=== PATIENT | male | born 1980 | race Caucasian/White ===

== ENCOUNTER → 2016-11-22 | Outpatient (CLI) | payer OTHER ==
[~2016-11-22] MED LIST: OPTIRAY 320 IV PRN; RANI150T3 PO
--- NOTE | 2016-11-22 08:04 | DIAGNOSTIC IMAGING REPORT ---
CT OF THE ABDOMEN AND PELVIS WITH CONTRAST CLINICAL HISTORY: Abdominal pain. Evaluate for acute diverticulitis. COMPARISON STUDY: CT of the abdomen and pelvis September 02, 2014. TECHNIQUE: Following IV administration of 120 mL of Optiray-320, axial images of the abdomen and pelvis were obtained from the lung bases to the proximal femurs. Images were reviewed in the axial, sagittal, and coronal planes. IV contrast was administered without complication. A dose lowering technique was utilized adhering to the principles of ALARA. Oral contrast was administered. FINDINGS: The lung bases are clear. No pneumatosis, free air or portal venous gas is present. The liver, spleen, adrenal glands, kidneys and pancreas are normal. There is no biliary or pancreatic ductal dilatation. No peripancreatic or pericholecystic infiltration is present. Both nephrograms are symmetric and there is no hydronephrosis. No ureteral calculi are present. The appendix is normal. There is no evidence for a bowel obstruction. Note is made of moderate sigmoid diverticulosis. There is mild infiltration adjacent to the mid sigmoid colon shown best on axial image 367 of 501. There is no free air or abscess. 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 No lymphadenopathy is present. Skeletal structures are present. IMPRESSION: 1. Mild acute sigmoid diverticulitis. No free air or abscess. 2. 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 Electronically signed by: Buck Salazar M.D. 11/22/2016 8:03 AM Dictated Date/Time: 11/22/2016 7:33 AM
== END | disposition home or self-care (01) ==
LOC: C.CTS 07:16
PROVIDERS: ATTEND Internal Medicine
DX: K57.92 Diverticulitis of intestine, part unspecified, without perforation or abscess without bleeding (principal)

== ENCOUNTER 2022-08-27 18:29 | Inpatient (IN) ==
[2022-08-27] MEDS ORDERED: SODIUM CHLORIDE 0.9% 1000ML 1,000 ML IV ONE ×2 (18:51→20:55)
--- NOTE | 2022-08-27 19:12 | Emergency Department Note ---
History of Present Illness General Chief complaint: Hyperglycemia Stated complaint: SUGAR OVER 600 Time Seen by Provider: 08/27/22 18:51 History of Present Illness 42-year-old male presents emergency department with a 1 month history of polyphasia polydipsia weight loss, reportedly checked machine and took his blood sugar was greater than 600. Patient denies any nausea vomiting diarrhea. Patient has a family history with a grandparent who has diabetes. Patient denies any alteration mental status denies generalized weakness denies back pain denies chest pain shortness of breath. Patient states he was concerned due to approximately 50 pound weight loss in 1-1/2 months. Patient states that he is hungry all of the time and is thirsty all of the time. He has no other complaints currently Home Medications Medication Instructions Recorded Confirmed Type omeprazole 20 mg tablet,delayed 20 mg PO DAILY 08/27/22 08/27/22 History release sertraline 150 mg capsule 150 mg PO DAILY 08/27/22 08/27/22 History Allergies Allergy/AdvReac Type Severity Reaction Status Date / Time bee venom protein (honey bee) Allergy Severe ANAPHYLAXIS Unverified 08/27/22 20:45 hornet venom Allergy Severe ANAPHYLAXIS Unverified 08/27/22 20:45 Past Med/Surg History Social History Smoking Status: Never smoker Feels Safe at Home: Yes Immunizations: Past medical history denies Review of Systems A total of 10 systems reviewed and were otherwise negative Constitutional: no fever Cardiovascular: no chest pain Gastrointestinal: no abdominal pain Neurologic: + generalized weakness Endocrine: + polydipsia, + polyphagia and + polyuria Physical Exam Vital Signs Vital Signs - 24 hr 08/27/22 18:36 08/27/22 18:49 08/27/22 19:03 Temperature 36.8 C Temperature Source Temporal Artery Scan Pulse Rate 83 88 Pulse Rate [Left Apical] 80 Respiratory Rate 20 16 15 Respiratory Effort / Characteristics Non-Labored Respiratory Depth Normal Blood Pressure 117/77 110/82 Blood Pressure [Right Arm] 125/89 Blood Pressure Mean 90 91 Blood Pressure Mean [Right Arm] 101 Pulse Oximetry 97 97 98 Oxygen Delivery Method Room Air Room Air Room Air Sepsis Recent Fever Within 48 Hours No Sepsis New/Unexplained Change in Mental Status Yes Sepsis Action Taken by Nursing No Action Required 08/27/22 19:03 08/27/22 19:30 08/27/22 20:00 Temperature Temperature Source Pulse Rate 87 75 77 Pulse Rate [Left Apical] Respiratory Rate 22 18 Respiratory Effort / Characteristics Respiratory Depth Blood Pressure 125/87 119/84 Blood Pressure [Right Arm] Blood Pressure Mean 99 95 Blood Pressure Mean [Right Arm] Pulse Oximetry 95 96 Oxygen Delivery Method Room Air Room Air Sepsis Recent Fever Within 48 Hours Sepsis New/Unexplained Change in Mental Status Sepsis Action Taken by Nursing GENERAL: Patient is awake alert in no acute distress patient is resting comfortably and showing no signs of anxiety EYES: The conjunctivae are clear. The pupils are round and reactive. EARS, NOSE, MOUTH AND THROAT: The nose is without any evidence of any deformity. Mucous membranes are moist. Tongue is midline. NECK: The neck is nontender and supple. RESPIRATORY: Normal respiratory effort is noted there is no evidence of wheezing rhonchi or rales CARDIOVASCULAR: Regular rate and rhythm noted there no murmurs rubs or gallops normal S1 normal S2. GASTROINTESTINAL: The abdomen is soft. Abdomen is nontender. BACK: No midline tenderness or or step-off noted range of motion in flexion ex tension as well as rotation no signs of muscle spasm noted MUSCULOSKELETAL/EXTREMITIES: There is no evidence of gross deformity full range of motion is noted in the hips and shoulders. SKIN: There is no obvious evidence of any rash. There are no petechiae, pallor or cyanosis noted. NEUROLOGIC: Patient is awake alert and oriented x3 strength is symmetric Course Reevaluation(s) Reevaluation #1: Patient was started on IV fluids. Patient had a decrease in his blood sugar after IV fluids alone. Time: 20:44 Consultations Consultation #1: Case was discussed with the [facility]ist for admission for hyperglycemia Time: 20:45 Administered Medications Discontinued Medications Sodium Chloride (Nss 1000ml) 1,000 mls @ 999 mls/hr IV .Q1H1M ONE Stop: 08/27/22 19:51 Last Infusion: 08/27/22 20:08 Dose: 0 mls/hr Documented By: Admin: 08/27/22 19:01 Dose: 999 mls/hr Documented By: MEEK Medical Decision Making Medical Records Attestation: I reviewed the patient's medical records. Home Medications Current Medication List: was personally reviewed by me Laboratory Data Attestation: I reviewed the patient's lab results. Patient has an elevated blood sugar. Patient has a normal VBG; patient's labs do not reveal diabetic ketoacidosis as a diagnosis at this time 08/27/22 18:46 08/27/22 18:46 Lab Results 08/27/22 08/27/22 08/27/22 Range/Units 18:35 18:46 18:46 WBC 9.99 (4.8-10.8) K/ul RBC 5.69 (4.70-6.10) M/uL Hgb 16.5 (14.0-18.0) g/dl Hct 44.8 (42.0-52.0) % MCV 78.7 L (80.0-100.0) fL MCH 29.0 (25.0-34.0) pg MCHC 36.8 H (32.0-36.0) g/dL RDW Std Deviation 34.2 L (36.4-46.3) fL RDW Coeff of Yvon 12.2 (11.5-14.5) % Plt Count 282 (130-400) K/uL MPV 11.6 (9.4-12.4) fL Immature Gran % (Auto) 0.7 % Neut % (Auto) 64.4 % Lymph % (Auto) 25.3 % [place] % (Auto) 7.7 % Eos % (Auto) 1.5 % Baso % (Auto) 0.4 % Neut # (Auto) 6.43 (1.40-6.50) K/uL Lymph # (Auto) 2.53 (1.2-3.4) K/uL [place] # (Auto) 0.77 H (0.11-0.59) K/uL Eos # (Auto) 0.15 (0-0.50) K/uL Baso # (Auto) 0.04 (0-0.2) K/uL Immature Gran # (Auto) 0.07 (0.01-0.20) K/uL VBG pH (7.36-7.41) VBG pCO2 (38-50) mmHg VBG pO2 mmHg VBG HCO3 mmol/L VBG O2 Saturation % VBG Base Excess mEq/L Sodium 130 L (136-145) mmol/L Potassium 3.6 (3.5-5.1) mmol/L Chloride 88 L (98-107) mmol/L Carbon Dioxide 27 (21-32) mmol/L Anion Gap 15 H (3-11) BUN 7 (6-23) mg/dl Creatinine 1.04 (0.6-1.4) mg/dl Est Cr Clr Drug Dosing 96.5 ml/min Est GFR ( Amer) 100.7 ml/min Est GFR (Non-Af Amer) 86.9 ml/min BUN/Creatinine Ratio 6.7 L (10-20) Glucose 443 H* (70-99(Fasting)) mg/dl POC Glucose 452 H* (70-99) mg/dl Estimat Average Glucose mg/dl Hemoglobin A1c (4.5-5.6) % Calcium 9.8 (8.6-10.3) mg/dl Phosphorus 3.0 (2.5-4.9) mg/dl Magnesium 1.9 (1.7-2.4) mg/dl Total Bilirubin 0.7 (0.2-1.0) mg/dl AST 20 (13-39) U/L ALT 36 (7-52) U/L Alkaline Phosphatase 160 H (34-104) U/L Total Protein 7.6 (6.0-8.3) gm/dl Albumin 4.8 (3.4-5.0) gm/dl Globulin 2.8 (2.5-4.0) gm/dl Albumin/Globulin Ratio 1.7 (0.9-2) Urine Color Urine Appearance (Clear) Urine pH (4.5-7.5) Ur Specific [place] (1.000-1.030) Urine Protein (Negative) Urine Glucose (UA) (Negative) Urine Ketones (Negative) Urine Blood (Negative) Urine Nitrite (Negative) Urine Bilirubin (Negative) Urine Urobilinogen (Negative) Ur Leukocyte Esterase (Negative) 08/27/22 08/27/22 08/27/22 Range/Units 18:46 18:47 18:59 WBC (4.8-10.8) K/ul RBC (4.70-6.10) M/uL Hgb (14.0-18.0) g/dl Hct (42.0-52.0) % MCV (80.0-100.0) fL MCH (25.0-34.0) pg MCHC (32.0-36.0) g/dL RDW Std Deviation (36.4-46.3) fL RDW Coeff of Yvon (11.5-14.5) % Plt Count (130-400) K/uL MPV (9.4-12.4) fL Immature Gran % (Auto) % Neut % (Auto) % Lymph % (Auto) % [place] % (Auto) % Eos % (Auto) % Baso % (Auto) % Neut # (Auto) (1.40-6.50) K/uL Lymph # (Auto) (1.2-3.4) K/uL [place] # (Auto) (0.11-0.59) K/uL Eos # (Auto) (0-0.50) K/uL Baso # (Auto) (0-0.2) K/uL Immature Gran # (Auto) (0.01-0.20) K/uL VBG pH 7.46 H (7.36-7.41) VBG pCO2 41 (38-50) mmHg VBG pO2 55 mmHg VBG HCO3 29 mmol/L VBG O2 Saturation 90.6 % VBG Base Excess 4.9 mEq/L Sodium (136-145) mmol/L Potassium (3.5-5.1) mmol/L Chloride (98-107) mmol/L Carbon Dioxide (21-32) mmol/L Anion Gap (3-11) BUN (6-23) mg/dl Creatinine (0.6-1.4) mg/dl Est Cr Clr Drug Dosing ml/min Est GFR ( Amer) ml/min Est GFR (Non-Af Amer) ml/min BUN/Creatinine Ratio (10-20) Glucose (70-99(Fasting)) mg/dl POC Glucose (70-99) mg/dl Estimat Average Glucose 421 mg/dl Hemoglobin A1c 16.3 H (4.5-5.6) % Calcium (8.6-10.3) mg/dl Phosphorus (2.5-4.9) mg/dl Magnesium (1.7-2.4) mg/dl Total Bilirubin (0.2-1.0) mg/dl AST (13-39) U/L ALT (7-52) U/L Alkaline Phosphatase (34-104) U/L Total Protein (6.0-8.3) gm/dl Albumin (3.4-5.0) gm/dl Globulin (2.5-4.0) gm/dl Albumin/Globulin Ratio (0.9-2) Urine Color Yellow Urine Appearance Clear (Clear) Urine pH 7.0 (4.5-7.5) Ur Specific [place] 1.044 H (1.000-1.030) Urine Protein Negative (Negative) Urine Glucose (UA) 3+ H (Negative) Urine Ketones 2+ H (Negative) Urine Blood Negative (Negative) Urine Nitrite Negative (Negative) Urine Bilirubin Negative (Negative) Urine Urobilinogen Negative (Negative) Ur Leukocyte Esterase Negative (Negative) 08/27/22 Range/Units 19:59 WBC (4.8-10.8) K/ul RBC (4.70-6.10) M/uL Hgb (14.0-18.0) g/dl Hct (42.0-52.0) % MCV (80.0-100.0) fL MCH (25.0-34.0) pg MCHC (32.0-36.0) g/dL RDW Std Deviation (36.4-46.3) fL RDW Coeff of Yvon (11.5-14.5) % Plt Count (130-400) K/uL MPV (9.4-12.4) fL Immature Gran % (Auto) % Neut % (Auto) % Lymph % (Auto) % [place] % (Auto) % Eos % (Auto) % Baso % (Auto) % Neut # (Auto) (1.40-6.50) K/uL Lymph # (Auto) (1.2-3.4) K/uL [place] # (Auto) (0.11-0.59) K/uL Eos # (Auto) (0-0.50) K/uL Baso # (Auto) (0-0.2) K/uL Immature Gran # (Auto) (0.01-0.20) K/uL VBG pH (7.36-7.41) VBG pCO2 (38-50) mmHg VBG pO2 mmHg VBG HCO3 mmol/L VBG O2 Saturation % VBG Base Excess mEq/L Sodium (136-145) mmol/L Potassium (3.5-5.1) mmol/L Chloride (98-107) mmol/L Carbon Dioxide (21-32) mmol/L Anion Gap (3-11) BUN (6-23) mg/dl Creatinine (0.6-1.4) mg/dl Est Cr Clr Drug Dosing ml/min Est GFR ( Amer) ml/min Est GFR (Non-Af Amer) ml/min BUN/Creatinine Ratio (10-20) Glucose (70-99(Fasting)) mg/dl POC Glucose 343 H* (70-99) mg/dl Estimat Average Glucose mg/dl Hemoglobin A1c (4.5-5.6) % Calcium (8.6-10.3) mg/dl Phosphorus (2.5-4.9) mg/dl Magnesium (1.7-2.4) mg/dl Total Bilirubin (0.2-1.0) mg/dl AST (13-39) U/L ALT (7-52) U/L Alkaline Phosphatase (34-104) U/L Total Protein (6.0-8.3) gm/dl Albumin (3.4-5.0) gm/dl Globulin (2.5-4.0) gm/dl Albumin/Globulin Ratio (0.9-2) Urine Color Urine Appearance (Clear) Urine pH (4.5-7.5) Ur Specific [place] (1.000-1.030) Urine Protein (Negative) Urine Glucose (UA) (Negative) Urine Ketones (Negative) Urine Blood (Negative) Urine Nitrite (Negative) Urine Bilirubin (Negative) Urine Urobilinogen (Negative) Ur Leukocyte Esterase (Negative) MDM Narrative Medical decision making differential diagnosis includes new onset diabetes, diabetic ketoacidosis, HHNK, electrolyte abnormality, dehydration Plan is to check labs, give IV fluids Patient was started on IV fluids, patient has an elevated blood sugar, a normal pH and not significant anion gap patient is not exhibiting any clinical signs at this time of diabetic ketoacidosis Patient will be admitted for IV hydration and diabetes Impression & Plan Diabetes mellitus, new onset Discharge Plan Visit Data Chief Complaint: Hyperglycemia Stated Complaint: SUGAR OVER 600 ED Provider: Brant Damian Discharge Problem: Diabetes mellitus, new onset Patient Disposition: Admitted As Inpatient Forms Stand Alone Forms: My [facility] Referrals Referrals: Clemente Franz MD [Outside Practitioners] -
[2022-08-27 19:16] LABS: Base Excess VBG 4.9 mEq/L; HCO3 VBG 29 mmol/L; Oxygen Saturation VBG 90.6 %; PCO2 VBG 41 mmHg (38-50); PO2 VBG 55 mmHg; pH VBG 7.46 (7.36-7.41)
[2022-08-27 19:17] LABS: Basophils # (auto) 0.04 K/uL (0-0.2); Basophils % (auto) 0.4 %; Eosinophils # (auto) 0.15 K/uL (0-0.50); Eosinophils % (auto) 1.5 %; Hematocrit (blood only) 44.8 % (42.0-52.0); Hemoglobin 16.5 g/dl (14.0-18.0); Immature Granulocytes # (auto) 0.07 K/uL (0.01-0.20); Immature Granulocytes % (auto) 0.7 %; Lymphocytes # (auto) 2.53 K/uL (1.2-3.4); Lymphocytes % (auto) 25.3 %; Mean Corpuscular Hgb Conc 36.8 g/dL (32.0-36.0); Mean Corpuscular Volume 78.7 fL (80.0-100.0); Mean Platelet Volume 11.6 fL (9.4-12.4); Monocytes # (auto) 0.77 K/uL (0.11-0.59); Monocytes % (auto) 7.7 %; Neutrophils # (auto) 6.43 K/uL (1.40-6.50); Neutrophils % (auto) 64.4 %; Platelet Count 282 K/uL (130-400); RDW Coefficient of Variation 12.2 % (11.5-14.5); RDW Standard Deviation 34.2 fL (36.4-46.3); Red Blood Count 5.69 M/uL (4.70-6.10); White Blood Count 9.99 K/ul (4.8-10.8)
[2022-08-27 19:19] LABS: Appearance Urine Clear (Clear); Bilirubin Urine Negative (Negative); Blood Urine Negative (Negative); Color Urine Yellow; Glucose Urine UA 3+ (Negative); Ketones Urine 2+ (Negative); Leukocyte Esterase Urine Negative (Negative); Nitrite Urine Negative (Negative); Protein Urine Negative (Negative); Specific Gravity Urine 1.044 (1.000-1.030); Urobilinogen Urine Negative (Negative)
[2022-08-27 19:33] LABS: Estimated Average Glucose 421 mg/dl; Hemoglobin A1C 16.3 % (4.5-5.6)
[2022-08-27 20:11] LABS: Albumin Level 4.8 gm/dl (3.4-5.0); Bilirubin,Total 0.7 mg/dl (0.2-1.0); Calcium 9.8 mg/dl (8.6-10.3); Magnesium 1.9 mg/dl (1.7-2.4); Potassium 3.6 mmol/L (3.5-5.1)
[2022-08-27 20:22] LABS: Albumin Globulin Ratio 1.7 (0.9-2); BUN Creatinine Ratio 6.7 (10-20); Creatinine Clr Calc Pharmacy 96.5 ml/min; Est GFR (African American) 100.7 ml/min; Est GFR (Non-African American) 86.9 ml/min; Globulin 2.8 gm/dl (2.5-4.0); Total Protein 7.6 gm/dl (6.0-8.3)
[2022-08-27] MEDS ORDERED: GLUCOSE 40% GEL 15 GM TUBE PO PRN (21:18)
[2022-08-27] MEDS ORDERED: LANTUS PER UNIT CHARGE SQ STA (21:18)
[2022-08-27] MEDS ORDERED: GLUCOSE 10 TAB/TUBE PO PRN (21:18)
[2022-08-27] MEDS ORDERED: DEXTROSE 50% 50 ML SYRINGE IV PRN (21:18)
[2022-08-27] MEDS ORDERED: GLUCAGON FOR INJ 1 MG VIAL SQ PRN (21:18)
[2022-08-27] MEDS ORDERED: CARBOHYDRATES FOR HYPOGLYCEMIA PO PRN (21:18)
[2022-08-27] MEDS ORDERED: INSULIN ASPART PER UNIT CHARGE SC SCH (21:20)
[2022-08-27] MEDS ORDERED: LACTATED RINGER'S 1,000 ML IV ONE (21:20)
[2022-08-27] MEDS ORDERED: POTASSIUM CHLORIDE CRTAB 20 MEQ TABCR PO STA (21:20)
--- NOTE | 2022-08-27 22:17 | History & Physical Report ---
Date of Service August 27, 2022 Assessment & Plan (1) DKA (diabetic ketoacidosis): Plan: Mild DKA New diagnosis DM with hemoglobin A1c of 16.3, possible VANCE Patient prediabetic on the basis of outpatient hemoglobin A1c of 5.9 last January 2019 on review of outpatient records. Possible VANCE Pseudohyponatremia secondary to hyperglycemia GERD, stable hyperlipidemia, not on maintenance medications mood disorder, stable past tobacco abuse GMF IVF Basal bolus insulin, ISS BG goal 1 10-1 40, carb count coverage, DM education May benefit from pharmacy glycemic consultation. Check glutamic acid acid decarboxylase antibody and zinc transporter 8 antibody levels. Outpatient Endocrinology consultation given possible VANCE. DVT prophylaxis per Lovenox subcu Full code Patient requesting updates providers. Ms. Vilma Macario, contact #[phone]. Text document was generated using Chalkboard voice recognition software. It may contain grammatical or spelling errors. Kindly contact undersigned for clarification of any documentation item in qu estion. History of Present Illness Chief Complaint: High blood sugar Primary Care Provider: ABILIO Ly (Patient has not met her.) Previous PCP : Dr. Franz from [facility] History obtained from patient, family, and records. Medical history significant for GERD, diverticulitis, hyperlipidemia, mood disorder, past tobacco abuse. Last confinement July 2014 enterocolonic fistula/abscess status post antibiotic Rx. Few months history of polydipsia, polyuria, and involuntary weight loss. Fever, no chills, no chest pain, no SOB, no abdominal pain. Patient checked patient's blood sugar at home. Blood sugar registering as high. Patient brought to ER for evaluation. 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 Allergies Allergy/AdvReac Type Severity Reaction Status Date / Time bee venom protein (honey bee) Allergy Severe ANAPHYLAXIS Unverified 08/27/22 20:45 hornet venom Allergy Severe ANAPHYLAXIS Unverified 08/27/22 20:45 morphine AdvReac Vomiting Verified 08/27/22 20:46 trazodone AdvReac hyperactivi Verified 08/27/22 20:46 ty Home Medications Medication Instructions Recorded Confirmed Type omeprazole 20 mg tablet,delayed 20 mg PO DAILY 08/27/22 08/27/22 History release sertraline 150 mg capsule 150 mg PO DAILY 08/27/22 08/27/22 History Past Med/Surg History Social History Smoking Status: Former smoker Cigarettes Per Day: 10; Second Hand Exposure: No; Do You Dip or Chew Tobacco: Yes (Not everyday.); Tobacco Cessation Education Requested by Patient: No Hx Alcohol Use: No Hx Substance Use: No Preferred Language: Wolof Communication Ability: Effective Manager Green Required: No Beliefs That Will Affect Care: None Current Living Situation: Alone Other Information That Helps Us Care for You: No Feels Safe at Home: Yes Safety Concerns: Feels Safe At This Time Assistive Devices: Glasses Review of Systems Review of Systems: As per HPI, all other systems reviewed and negative Physical Exam Physical Exam: GENERAL: Comfortable, pleasant, no respiratory distress SKIN: Normal color, warm HEENT: Gratis palpebral conjunctivae, no ptosis, dry buccal mucosa NECK : Supple, no tenderness CHEST : CTA, no tenderness HEART : RRR, no obvious murmurs ABDOMEN: Some distention, nontender EXTREMITIES : No LE swelling/tenderness, no other conspicuous deformities noted NEUROLOGIC : Coherent, no facial asymmetry, no other gross focality Results & Data Results & Data Vital Signs (Past 12 Hours) Vital Signs Temp Pulse Pulse Resp BP BP Pulse Ox 08/27/22 22:00 74 19 137/90 97 08/27/22 21:30 69 16 123/89 96 08/27/22 21:00 77 19 127/86 94 08/27/22 20:50 76 15 97 08/27/22 20:40 70 18 95 08/27/22 20:30 71 19 97 08/27/22 20:30 119/82 08/27/22 20:20 72 15 96 08/27/22 20:00 77 18 119/84 96 08/27/22 19:30 75 22 125/87 95 08/27/22 19:03 87 08/27/22 19:03 88 15 110/82 98 08/27/22 18:49 80 16 125/89 97 08/27/22 18:36 36.8 C 83 20 117/77 97 O2 Del Method 08/27/22 22:00 Room Air 08/27/22 21:30 Room Air 08/27/22 21:00 Room Air 08/27/22 20:50 08/27/22 20:40 08/27/22 20:30 08/27/22 20:30 08/27/22 20:20 08/27/22 20:00 Room Air 08/27/22 19:30 Room Air 08/27/22 19:03 08/27/22 19:03 Room Air 08/27/22 18:49 Room Air 08/27/22 18:36 Room Air Laboratory Results Laboratory Results WBC 9.99 K/ul (4.8-10.8) 08/27/22 18:46 RBC 5.69 M/uL (4.70-6.10) 08/27/22 18:46 Hgb 16.5 g/dl (14.0-18.0) 08/27/22 18:46 Hct 44.8 % (42.0-52.0) 08/27/22 18:46 MCV 78.7 fL (80.0-100.0) L 08/27/22 18:46 MCH 29.0 pg (25.0-34.0) 08/27/22 18:46 MCHC 36.8 g/dL (32.0-36.0) H 08/27/22 18:46 RDW Std Deviation 34.2 fL (36.4-46.3) L 08/27/22 18:46 RDW Coeff of Yvon 12.2 % (11.5-14.5) 08/27/22 18:46 Plt Count 282 K/uL (130-400) 08/27/22 18:46 MPV 11.6 fL (9.4-12.4) 08/27/22 18:46 Immature Gran % (Auto) 0.7 % 08/27/22 18:46 Neut % (Auto) 64.4 % 08/27/22 18:46 Lymph % (Auto) 25.3 % 08/27/22 18:46 [place] % (Auto) 7.7 % 08/27/22 18:46 Eos % (Auto) 1.5 % 08/27/22 18:46 Baso % (Auto) 0.4 % 08/27/22 18:46 Neut # (Auto) 6.43 K/uL (1.40-6.50) 08/27/22 18:46 Lymph # (Auto) 2.53 K/uL (1.2-3.4) 08/27/22 18:46 [place] # (Auto) 0.77 K/uL (0.11-0.59) H 08/27/22 18:46 Eos # (Auto) 0.15 K/uL (0-0.50) 08/27/22 18:46 Baso # (Auto) 0.04 K/uL (0-0.2) 08/27/22 18:46 Immature Gran # (Auto) 0.07 K/uL (0.01-0.20) 08/27/22 18:46 VBG pH 7.46 (7.36-7.41) H 08/27/22 18:59 VBG pCO2 41 mmHg (38-50) 08/27/22 18:59 VBG pO2 55 mmHg 08/27/22 18:59 VBG HCO3 29 mmol/L 08/27/22 18:59 VBG O2 Saturation 90.6 % 08/27/22 18:59 VBG Base Excess 4.9 mEq/L 08/27/22 18:59 Sodium 130 mmol/L (136-145) L 08/27/22 18:46 Potassium 3.6 mmol/L (3.5-5.1) 08/27/22 18:46 Chloride 88 mmol/L (98-107) L 08/27/22 18:46 Carbon Dioxide 27 mmol/L (21-32) 08/27/22 18:46 Anion Gap 15 (3-11) H 08/27/22 18:46 BUN 7 mg/dl (6-23) 08/27/22 18:46 Creatinine 1.04 mg/dl (0.6-1.4) 08/27/22 18:46 Est Cr Clr Drug Dosing 96.5 ml/min 08/27/22 18:46 Est GFR ( Amer) 100.7 ml/min 08/27/22 18:46 Est GFR (Non-Af Amer) 86.9 ml/min 08/27/22 18:46 BUN/Creatinine Ratio 6.7 (10-20) L 08/27/22 18:46 Glucose 443 mg/dl (70-99(Fasting)) H* 08/27/22 18:46 POC Glucose 276 mg/dl (70-99) H 08/27/22 21:04 Estimat Average Glucose 421 mg/dl 08/27/22 18:46 Hemoglobin A1c 16.3 % (4.5-5.6) H 08/27/22 18:46 Calcium 9.8 mg/dl (8.6-10.3) 08/27/22 18:46 Phosphorus 3.0 mg/dl (2.5-4.9) 08/27/22 18:46 Magnesium 1.9 mg/dl (1.7-2.4) 08/27/22 18:46 Total Bilirubin 0.7 mg/dl (0.2-1.0) 08/27/22 18:46 AST 20 U/L (13-39) 08/27/22 18:46 ALT 36 U/L (7-52) 08/27/22 18:46 Alkaline Phosphatase 160 U/L (34-104) H 08/27/22 18:46 Total Protein 7.6 gm/dl (6.0-8.3) 08/27/22 18:46 Albumin 4.8 gm/dl (3.4-5.0) 08/27/22 18:46 Globulin 2.8 gm/dl (2.5-4.0) 08/27/22 18:46 Albumin/Globulin Ratio 1.7 (0.9-2) 08/27/22 18:46 TSH 1.890 uIu/ml (0.300-4.500) 08/27/22 18:46 Urine Color Yellow 08/27/22 18:47 Urine Appearance Clear (Clear) 08/27/22 18:47 Urine pH 7.0 (4.5-7.5) 08/27/22 18:47 Ur Specific [place] 1.044 (1.000-1.030) H 08/27/22 18:47 Urine Protein Negative (Negative) 08/27/22 18:47 Urine Glucose (UA) 3+ (Negative) H 08/27/22 18:47 Urine Ketones 2+ (Negative) H 08/27/22 18:47 Urine Blood Negative (Negative) 08/27/22 18:47 Urine Nitrite Negative (Negative) 08/27/22 18:47 Urine Bilirubin Negative (Negative) 08/27/22 18:47 Urine Urobilinogen Negative (Negative) 08/27/22 18:47 Ur Leukocyte Esterase Negative (Negative) 08/27/22 18:47 SARS-CoV-2, RNA, NAAT NEGATIVE (NEGATIVE) 08/27/22 20:35
[2022-08-27] MEDS ORDERED: PROMETHAZINE HCL 6.25 MG in SODIUM CHLORIDE 0.9% 50 ML IV PRN (23:27)
[2022-08-27] MEDS ORDERED: ACETAMINOPHEN 325 MG TAB PO PRN (23:27)
[2022-08-28 03:22] LABS: Basophils # (auto) 0.04 K/uL (0-0.2); Basophils % (auto) 0.5 %; Eosinophils # (auto) 0.21 K/uL (0-0.50); Eosinophils % (auto) 2.4 %; Hematocrit (blood only) 36.9 % (42.0-52.0); Hemoglobin 13.6 g/dl (14.0-18.0); Immature Granulocytes # (auto) 0.06 K/uL (0.01-0.20); Immature Granulocytes % (auto) 0.7 %; Lymphocytes # (auto) 2.96 K/uL (1.2-3.4); Lymphocytes % (auto) 33.6 %; Mean Corpuscular Hemoglobin 29.3 pg (25.0-34.0); Mean Corpuscular Hgb Conc 36.9 g/dL (32.0-36.0); Mean Corpuscular Volume 79.5 fL (80.0-100.0); Mean Platelet Volume 11.1 fL (9.4-12.4); Monocytes # (auto) 0.64 K/uL (0.11-0.59); Monocytes % (auto) 7.3 %; Neutrophils % (auto) 55.5 %; Platelet Count 239 K/uL (130-400); RDW Coefficient of Variation 12.1 % (11.5-14.5); RDW Standard Deviation 34.9 fL (36.4-46.3); Red Blood Count 4.64 M/uL (4.70-6.10); White Blood Count 8.81 K/ul (4.8-10.8)
[2022-08-28 03:59] LABS: BUN Creatinine Ratio 7.8 (10-20); Calcium 8.1 mg/dl (8.6-10.3); Creatinine Clr Calc Pharmacy 97.5 ml/min; Est GFR (African American) 101.9 ml/min; Est GFR (Non-African American) 87.9 ml/min; Potassium 3.6 mmol/L (3.5-5.1)
[2022-08-28] MEDS ORDERED: NSS + 20MEQ KCL 20 MEQ/1,000 ML BAG IV ONE (04:15)
[2022-08-28] MEDS: INSULIN ASPART PER UNIT CHARGE SC SCH ×4 (05:12→20:19)
[2022-08-28] MEDS ORDERED: LANTUS PER UNIT CHARGE SQ STA (05:22)
--- NOTE | 2022-08-28 07:04 | XRay Report ---
XR chest 1V portable CLINICAL HISTORY: hyponatremia COMPARISON STUDY: Chest radiograph September 02, 2014. FINDINGS: Lung volumes are normal. There is no consolidation. No pulmonary nodules are identified how ever radiography has decreased sensitivity for detection of small pulmonary nodules. There is no pneu mothorax or pleural effusion. Cardiac size is normal. Mediastinal contours are normal. There is no ev idence for pulmonary edema. IMPRESSION: No acute cardiopulmonary findings. ACT 112: Negative or not required by law. Electronically signed by: Buck Salazar M.D. 08/28/2022 7:03 AM
[2022-08-28] MEDS: SERTRALINE HCL 50 MG TABLET PO SCH (09:09)
[2022-08-28] MEDS: ENOXAPARIN INJ 40 MG/0.4 ML SYR SQ SCH (09:09)
[2022-08-28] MEDS: PANTOprazole 40 MG TAB PO SCH (09:09)
[2022-08-28] MEDS ORDERED: PHARMACY GLYCEMIC MGMT CONSULT PRN (15:46)
--- NOTE | 2022-08-28 16:01 | Hospitalist Progress Note ---
Date of Service August 28, 2022 Assessment & Plan (1) Hyperglycemia without ketosis: Plan: DKA is ruled out-no acidosis, no anion gap New diagnosis DM with hemoglobin A1c of 16.3, possible VANCE Patient prediabetic on the basis of outpatient hemoglobin A1c of 5.9 last January 2019 on review of outpatient records. Possible VANCE Glycemic pharmacy consult Appreciate input from dehorner Patient has been feeling much better Anti-KERMIT 65 antibody and zinc transporter 8 antibody pending Insulin autoantibody and IA 2 antibody have been sent out Likely discharge tomorrow Pseudohyponatremia secondary to hyperglycemia Sodium level remains stable at 133 We will monitor GERD, stable Continue Protonix Hyperlipidemia, not on maintenance medications Mood disorder, stable Continue sertraline Past tobacco abuse (2) Diabetes mellitus, new onset: Plan: Uncontrolled diabetes with symptoms of hyperglycemia Hemoglobin A1c is 16.3 and that was 5.9 in January DVT prophylaxis per Lovenox subcu Full code Patient requesting updates providers. Ms. Vilma Macario, contact #[phone]. Admission and Anticipated Discharge Date Admission Date: August 27, 2022 Subjective 08/28/2022 The patient was seen and examined in medical floor He has been feeling much better since admission and the blood sugar has been running around upper 200 Denies any abdominal pain, nausea and or vomiting No fever and or chills Review of Systems Review of Systems: All systems reviewed and are unremarkable except as noted below Physical Exam Physical Exam: Lying in bed comfortably Constitutional: well developed, well nourished and average body habitus Eyes: PERRL, conjunctivae normal, anicteric sclerae ENMT: external ear and nose normal, oropharynx normal Neck: trachea midline, no thyromegaly Respiratory: no respiratory distress Auscultation: lungs clear to auscultation bilaterally Cardiovascular: Rate/Rhythm: regular rate and regular rhythm; not tachycardic Heart Sounds: normal S1 and normal S2; no murmur Extremities: no edema Gastrointestinal (Abdomen): Inspection/Auscultation: abdomen not distended Percussion/Palpation: abdomen soft; abdomen nontender Musculoskeletal: No acute arthritis involving any of the joint Neurologic: Alert, awake and oriented x3. No focal sensory or motor deficit appreciated Lymphatic: no cervical or axillary lymphadenopathy Results & Data Results & Data Vital Signs (Past 12 Hours) Vital Signs Temp Pulse Resp BP Pulse Ox O2 Del Method 08/28/22 15:01 36.8 C 75 22 115/76 96 Room Air 08/28/22 08:15 115/73 08/28/22 07:26 36.6 C 62 16 94/55 L 97 Room Air Laboratory Results Short CBC 08/27/22 08/28/22 Range/Units 18:46 02:48 WBC 9.99 8.81 (4.8-10.8) K/ul Hgb 16.5 13.6 L D (14.0-18.0) g/dl Hct 44.8 36.9 L (42.0-52.0) % Plt Count 282 239 (130-400) K/uL BMP 08/27/22 08/28/22 18:46 02:48 Sodium 130 L 133 L Potassium 3.6 3.6 Chloride 88 L 99 Carbon Dioxide 27 29 BUN 7 8 Creatinine 1.04 1.03 Glucose 443 H* 303 H* Calcium 9.8 8.1 L Liver Function 08/27/22 Range/Units 18:46 Total Bilirubin 0.7 (0.2-1.0) mg/dl AST 20 (13-39) U/L ALT 36 (7-52) U/L Alkaline Phosphatase 160 H (34-104) U/L Albumin 4.8 (3.4-5.0) gm/dl Urine 08/27/22 Range/Units 18:47 Urine Color Yellow Urine Appearance Clear (Clear) Urine pH 7.0 (4.5-7.5) Ur Specific [place] 1.044 H (1.000-1.030) Urine Protein Negative (Negative) Urine Glucose (UA) 3+ H (Negative) Medications Administered Current Inpatient Medications Acetaminophen (Acetaminophen 325 Mg Tab) 650 mg PO Q4H PRN PRN Reason: pain/fever Stop: 09/26/22 23:26 Dextrose (Dextrose 50% 50 Ml Syringe) 25 - 50 ml IV UD PRN; Protocol PRN Reason: Hypoglycemia Protocol Stop: 09/26/22 21:17 Enoxaparin Sodium (Enoxaparin Inj 40 Mg/0.4 Ml Syr) 40 mg SQ QAM [facility] Stop: 09/27/22 08:59 Last Admin: 08/28/22 09:09 Dose: 40 mg Glucagon (Glucagon For Inj 1 Mg Vial) 1 mg SQ UD PRN; Protocol PRN Reason: Hypoglycemia Protocol Stop: 09/26/22 21:17 Glucose (Glucose 10 Tab/Tube) 4 - 8 tab PO UD PRN; Protocol PRN Reason: Hypoglycemia Treatment Stop: 09/26/22 21:17 Glucose (Glucose 40% Gel 15 Gm Tube) 15 - 30 gm PO UD PRN; Protocol PRN Reason: Hypoglycemia Protocol Stop: 09/26/22 21:17 Promethazine HCl 6.25 mg/ (Sodium Chloride) 50.25 mls @ 201 mls/hr IV Q6H PRN PRN Reason: Nausea And Vomiting Stop: 09/26/22 23:26 Insulin Aspart (Insulin Aspart Per Unit Charge) 0 units SC ACHS [facility] Stop: 09/27/22 04:04 Last Admin: 08/28/22 12:39 Dose: 10 units Insulin Glargine (Lantus Per Unit Charge) 45 units SQ HS [facility] Stop: 09/27/22 20:59 Miscellaneous (Carbohydrates For Hypoglycemia ) 15 - 30 gm PO UD PRN PRN Reason: Hypoglycemia Protocol Stop: 09/26/22 21:17 Pantoprazole Sodium (Pantoprazole 40 Mg Tab) 40 mg PO DAILY [facility] Stop: 09/27/22 08:59 Last Admin: 08/28/22 09:09 Dose: 40 mg Sertraline HCl (Sertraline Hcl 50 Mg Tablet) 150 mg PO DAILY [facility] Stop: 09/27/22 08:59 Last Admin: 08/28/22 09:09 Dose: 150 mg
[2022-08-28] MEDS ORDERED: LANTUS PER UNIT CHARGE SQ ONE (16:30)
[2022-08-28] MEDS ORDERED: LANTUS PER UNIT CHARGE SQ SCH ×2 (21:00)
[2022-08-29] MEDS: INSULIN ASPART PER UNIT CHARGE SC SCH ×5 (00:21→17:48)
[2022-08-29 07:25] LABS: Basophils # (auto) 0.04 K/uL (0-0.2); Basophils % (auto) 0.5 %; Eosinophils # (auto) 0.16 K/uL (0-0.50); Hemoglobin 13.6 g/dl (14.0-18.0); Immature Granulocytes # (auto) 0.06 K/uL (0.01-0.20); Immature Granulocytes % (auto) 0.8 %; Lymphocytes % (auto) 33.2 %; Mean Corpuscular Hemoglobin 28.5 pg (25.0-34.0); Mean Corpuscular Hgb Conc 35.8 g/dL (32.0-36.0); Mean Corpuscular Volume 79.7 fL (80.0-100.0); Monocytes # (auto) 0.59 K/uL (0.11-0.59); Monocytes % (auto) 7.5 %; Neutrophils # (auto) 4.37 K/uL (1.40-6.50); Platelet Count 211 K/uL (130-400); RDW Coefficient of Variation 12.5 % (11.5-14.5); RDW Standard Deviation 35.8 fL (36.4-46.3); Red Blood Count 4.77 M/uL (4.70-6.10); White Blood Count 7.82 K/ul (4.8-10.8)
[2022-08-29 07:47] LABS: BUN Creatinine Ratio 17.4 (10-20); Calcium 8.6 mg/dl (8.6-10.3); Creatinine Clr Calc Pharmacy 116.7 ml/min; Est GFR (African American) 122.2 ml/min; Est GFR (Non-African American) 105.5 ml/min; Magnesium 1.9 mg/dl (1.7-2.4); Phosphorus 3.4 mg/dl (2.5-4.9); Potassium 3.3 mmol/L (3.5-5.1)
[2022-08-29] MEDS ORDERED: POTASSIUM CHLORIDE CRTAB 20 MEQ TABCR PO STA (07:48)
--- NOTE | 2022-08-29 08:44 | Pharmacy Report ---
Pharmacy Glycemic Short Note 2 - Date of Service August 29, 2022 - Glycemic Short BSG Results (Last 24 hours): 08/28/22 08/28/22 08/28/22 11:59 12:00 16:05 Glucose POC Glucose 300 H 266 H 182 H 08/28/22 08/28/22 08/28/22 20:05 20:09 23:53 Glucose POC Glucose 300 H 310 H* 89 08/29/22 08/29/22 08/29/22 04:06 06:50 08:03 Glucose 173 H POC Glucose 182 H 166 H OUTPATIENT ANTIDIABETIC REGIMEN: * n/a - new diagnosis HbA1c: 16.3% (08/27/22) ASSESSMENT: * BD is a 42 year old male who presented to ED on 08/27 with 1 month history of polyphagia, polydipsia, and weight loss (no history of diabetes) * BSG on presentation was 452 mg/dL w/ mildly elevated anion gap and normal serum bicarb * information systems auditor consulted - patient will require Lantus/Admelog at discharge * BSGs labile yesterday, ranging 89-300 mg/dL * Received 72 units of insulin (30 units of basal and 42 units of prandial/correctional bolus) * Given significantly elevated estimated average glucose (> 400 mg/dL based on HbA1c), okay with mildly elevated BSGs at this time PLAN FOR INPATIENT GLYCEMIC CONTROL: * Basal insulin * Lantus 30 units SC daily * Bolus insulin * NovoLog per scale ACHS or Q6hrs while NPO * Goal Range: Low 110 mg/dL - High 140 mg/dL * Correction Factor: 25 mg/dL/unit * Nutritional / Prandial insulin per carb ratio of 1 unit per 7 grams CHO c onsumed
[2022-08-29] MEDS: SERTRALINE HCL 50 MG TABLET PO SCH (08:56)
[2022-08-29] MEDS: PANTOprazole 40 MG TAB PO SCH (08:56)
[2022-08-29] MEDS ORDERED: LANTUS PER UNIT CHARGE SQ ONE (09:00)
[2022-08-29] MEDS: ENOXAPARIN INJ 40 MG/0.4 ML SYR SQ SCH (09:11)
--- NOTE | 2022-08-29 13:03 | Hospitalist Progress Note ---
Date of Service August 29, 2022 Assessment & Plan (1) Hyperglycemia without ketosis: Plan: DKA is ruled out-no acidosis, no anion gap New diagnosis DM with hemoglobin A1c of 16.3, possible VANCE Patient prediabetic on the basis of outpatient hemoglobin A1c of 5.9 last January 2019 on review of outpatient records. Possible VANCE Glycemic pharmacy consult Appreciate input from senior health educator Patient has been feeling much better Anti-KERMIT 65 antibody and zinc transporter 8 antibody pending Insulin autoantibody and IA 2 antibody have been sent out Specific test to find out the diabetes status pending-NT KERMIT 65 antibody, anti- IA 2 antibody, zinc transporter 8 antibody and insulin autoantibody Her blood sugar remains reasonably stable to be discharged He will be given insulin as advised by the glycemic pharmacist He has had recommendation from senior health educator Need to have an appointment with his PCP and also an float tender as an outpatient Pseudohyponatremia secondary to hyperglycemia Sodium level remains stable at 133 We will monitor-Sodium has been normalized Potassium will be supplemented GERD, stable Continue Protonix Hyperlipidemia, not on maintenance medications Mood disorder, stable Continue sertraline Past tobacco abuse Strongly advised to quit smoking (2) Diabetes mellitus, new onset: Plan: Uncontrolled diabetes with symptoms of hyperglycemia Hemoglobin A1c is 16.3 and that was 5.9 in January DVT prophylaxis per Lovenox subcu Full code Patient requesting updates providers. Ms. Vilma Macario, contact #[phone]. Will be discharged home this afternoon Admission and Anticipated Discharge Date Admission Date: August 27, 2022 Subjective 08/28/2022 The patient was seen and examined in medical floor He has been feeling much better since admission and the blood sugar has been running around upper 200 Denies any abdominal pain, nausea and or vomiting No fever and or chills 08/29/2022 The patient was seen and examined in medical floor He has been feeling much better and does not have any significant symptoms He will be going home this afternoon Review of Systems Review of Systems: All systems reviewed and are unremarkable except as noted below Physical Exam Physical Exam: Lying in bed comfortably Constitutional: well developed, well nourished and average body habitus Eyes: PERRL, conjunctivae normal, anicteric sclerae ENMT: external ear and nose normal, oropharynx normal Neck: trachea midline, no thyromegaly Respiratory: no respiratory distress Auscultation: lungs clear to auscultation bilaterally Cardiovascular: Rate/Rhythm: regular rate and regular rhythm; not tachycardic Heart Sounds: normal S1 and normal S2; no murmur Extremities: no edema Gastrointestinal (Abdomen): Inspection/Auscultation: abdomen not distended Percussion/Palpation: abdomen soft; abdomen nontender Musculoskeletal: No acute arthritis involving any of the joint Neurologic: normal touch/pain/proprioception and moves all extremities; no focal motor deficits Psychiatric: A+Ox3, euthymic affect Lymphatic: no cervical or axillary lymphadenopathy Results & Data Results & Data Vital Signs (Past 12 Hours) Vital Signs Temp Pulse Resp BP Pulse Ox O2 Del Method 08/29/22 07:22 36.8 C 69 20 103/66 98 Room Air Laboratory Results Short CBC 08/29/22 Range/Units 06:50 WBC 7.82 (4.8-10.8) K/ul Hgb 13.6 L (14.0-18.0) g/dl Hct 38.0 L (42.0-52.0) % Plt Count 211 (130-400) K/uL [facility] 08/29/22 06:50 Sodium 136 Potassium 3.3 L Chloride 104 Carbon Dioxide 25 BUN 15 Creatinine 0.86 Glucose 173 H Calcium 8.6 Medications Administered Current Inpatient Medications Acetaminophen (Acetaminophen 325 Mg Tab) 650 mg PO Q4H PRN PRN Reason: pain/fever Stop: 09/26/22 23:26 Dextrose (Dextrose 50% 50 Ml Syringe) 25 - 50 ml IV UD PRN; Protocol PRN Reason: Hypoglycemia Protocol Stop: 09/26/22 21:17 Enoxaparin Sodium (Enoxaparin Inj 40 Mg/0.4 Ml Syr) 40 mg SQ QAM [facility] Stop: 09/27/22 08:59 Last Admin: 08/29/22 09:11 Dose: Not Given Glucagon (Glucagon For Inj 1 Mg Vial) 1 mg SQ UD PRN; Protocol PRN Reason: Hypoglycemia Protocol Stop: 09/26/22 21:17 Glucose (Glucose 10 Tab/Tube) 4 - 8 tab PO UD PRN; Protocol PRN Reason: Hypoglycemia Treatment Stop: 09/26/22 21:17 Glucose (Glucose 40% Gel 15 Gm Tube) 15 - 30 gm PO UD PRN; Protocol PRN Reason: Hypoglycemia Protocol Stop: 09/26/22 21:17 Promethazine HCl 6.25 mg/ (Sodium Chloride) 50.25 mls @ 201 mls/hr IV Q6H PRN PRN Reason: Nausea And Vomiting Stop: 09/26/22 23:26 Insulin Aspart (Insulin Aspart Per Unit Charge) 0 units SC ACHS [facility] Stop: 09/27/22 04:04 Last Admin: 08/29/22 12:36 Dose: 12 units Miscellaneous (Carbohydrates For Hypoglycemia ) 15 - 30 gm PO UD PRN PRN Reason: Hypoglycemia Protocol Stop: 09/26/22 21:17 Miscellaneous Information (Pharmacy Glycemic Mgmt Consult) 1 each N/A UD PRN; Protocol PRN Reason: Consult Stop: 09/27/22 15:45 Pantoprazole Sodium (Pantoprazole 40 Mg Tab) 40 mg PO DAILY [facility] Stop: 09/27/22 08:59 Last Admin: 08/29/22 08:56 Dose: 40 mg Sertraline HCl (Sertraline Hcl 50 Mg Tablet) 150 mg PO DAILY [facility] Stop: 09/27/22 08:59 Last Admin: 08/29/22 08:56 Dose: 150 mg
--- NOTE | 2022-08-29 16:50 | Discharge Summary ---
Date of Service August 29, 2022 Admission HPI Per Admitting Provider History obtained from patient, family, and records. Medical history significant for GERD, diverticulitis, hyperlipidemia, mood disorder, past tobacco abuse. Last confinement July 2014 enterocolonic fistula/abscess status post antibiotic Rx. Few months history of polydipsia, polyuria, and involuntary weight loss. Fever, no chills, no chest pain, no SOB, no abdominal pain. Patient checked patient's blood sugar at home. Blood sugar registering as high. Patient brought to ER for evaluation. 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 Admission Exam Per Admitting Provider Physical Exam: GENERAL: Comfortable, pleasant, no respiratory distress SKIN: Normal color, warm HEENT: [place] palpebral conjunctivae, no ptosis, dry buccal mucosa NECK : Supple, no tenderness CHEST : CTA, no tenderness HEART : RRR, no obvious murmurs ABDOMEN: Some distention, nontender EXTREMITIES : No LE swelling/tenderness, no other conspicuous deformities noted NEUROLOGIC : Coherent, no facial asymmetry, no other gross focality Principal Diagnosis Hyperglycemia without ketosis, newly diagnosed diabetes likely insulin- dependent, mood disorder, GERD Discharge Exam Lying in bed comfortably Constitutional well developed, well nourished and average body habitus Eyes PERRL, conjunctivae normal, anicteric sclerae ENMT external ear and nose normal, oropharynx normal Neck trachea midline, no thyromegaly Respiratory no respiratory distress Auscultation: lungs clear to auscultation bilaterally Cardiovascular Rate/Rhythm: regular rate and regular rhythm; not tachycardic Heart Sounds: normal S1 and normal S2; no murmur Extremities: no edema Gastrointestinal (Abdomen) Inspection/Auscultation: abdomen not distended Percussion/Palpation: abdomen soft; abdomen nontender Neurologic normal touch/pain/proprioception and moves all extremities; no focal motor deficits Psychiatric A+Ox3, euthymic affect Lymphatic no cervical or axillary lymphadenopathy Discharge Data Allergies Allergy/AdvReac Type Severity Reaction Status Date / Time bee venom protein (honey bee) Allergy Severe ANAPHYLAXIS Unverified 08/27/22 20:45 hornet venom Allergy Severe ANAPHYLAXIS Unverified 08/27/22 20:45 morphine AdvReac Vomiting Verified 08/27/22 20:46 trazodone AdvReac hyperactivi Verified 08/27/22 20:46 ty Consultations 08/27/22 20:29 ED Decision to Admit Stat Hospital Course (1) Hyperglycemia without ketosis: DKA is ruled out-no acidosis, no anion gap New diagnosis DM with hemoglobin A1c of 16.3, possible VANCE Patient prediabetic on the basis of outpatient hemoglobin A1c of 5.9 last No 2018 on review of outpatient records. Possible VANCE Glycemic pharmacy consult Appreciate input from certified diabetes educator Patient has been feeling much better Anti-KERMIT 65 antibody and zinc transporter 8 antibody pending Insulin autoantibody and IA 2 antibody have been sent out Specific test to find out the diabetes status pending-NT KERMIT 65 antibody, anti- IA 2 antibody, zinc transporter 8 antibody and insulin autoantibody Her blood sugar remains reasonably stable to be discharged He will be given insulin as advised by the glycemic pharmacist He has had recommendation from certified diabetes educator Need to have an appointment with his PCP and also an paint preparer as an outpatient Pseudohyponatremia secondary to hyperglycemia Sodium level remains stable at 133 We will monitor-Sodium has been normalized Potassium will be supplemented GERD, stable Continue Protonix Hyperlipidemia, not on maintenance medications Mood disorder, stable Continue sertraline Past tobacco abuse Strongly advised to quit smoking (2) Diabetes mellitus, new onset: Uncontrolled diabetes with symptoms of hyperglycemia Hemoglobin A1c is 16.3 and that was 5.9 in January DVT prophylaxis per Lovenox subcu Full code Patient requesting updates providers. Ms. Vilma Macario, contact #[phone]. Will be discharged home this afternoon Total Time Total Time Spent Total Time Spent (In Minutes): 45 minutes Discharge Plan Discharge Items Patient Disposition: Home - Self-Care Reason For Visit: MILD DKA Discharge Diagnosis: Hyperglycemia without ketosis, newly diagnosed diabetes likely insulin- dependent, mood disorder, GERD Condition on Discharge: Good Activity: Resume your previous activity Non-emergency contact: Primary Care Provider Call non-emergency contact if: you have any medication questions and your symptoms worsen Follow-up/Referrals: Shabnam Macias CRNP [Primary Care Provider] - 09/19/22 2:45 pm Diet: Carb Count or DM1 Addtl Attending Provider Instructions: Please take precautions to avoid fall Please keep a record of your blood sugar as advised and take it to your primary care physician/paint preparer Check your blood sugar as advised and take your insulin as directed Follow diabetic diet and do regular exercise Please give appointment with your healthcare providers Pending Studies at Discharge: Yes Studies:: Specific diabetes test Stand-Alone Forms: My [facility] [place], Smoking Cessation Medications and DC Order Prescriptions: New insulin glargine [Lantus Solostar U-100 Insulin] 100 unit/mL (3 mL) insulin pen 30 unit subcut QAM Qty: 15 0RF insulin lispro [Admelog SoloStar U-100 Insulin] 100 unit/mL insulin pen 1 sliding scale dose subcut [id number] Qty: 15 0RF Rx Instructions: Blood Sugar 70-150 give 0 unit,151-200::2units,201-250::4units,251-300::6units,301-350::7units,351-400::8 units,>400::10 units and call MD Continued omeprazole 20 mg Tablet,Delayed Release (Dr/Ec) 20 mg PO DAILY sertraline 150 mg Capsule 150 mg PO DAILY Discharge Orders: Discharge Order (Routine); Ordered 08/29/22 Ordered By: Zee Curry Admission Data Admit Date/Time: 08/27/22 22:18 Attending Provider: Zee Curry Admit Provider: Collin Velazquez Primary Care Provider: Shabnam Macias Other Providers: Collin Velazquez
[2022-09-03 18:08] LABS: Zinc Transporter 8 (ZnT8) Ab <10 U/mL (<15)
== END 2022-08-29 17:50 | disposition home or self-care (01) | DRG 639 ==
LOC: ED 18:29 → 3W 22:18